=== PATIENT | female | born 1980 | race Caucasian/White ===

== ENCOUNTER 2020-05-11 18:04 | Emergency (ER) | payer OTHER ==
[~2020-05-11] VITALS: Ht 170.2 cm; Wt 118.2 kg
[2020-05-11 18:21] VITALS: Ht 170.2 cm; Wt 118.2 kg
[2020-05-11] MEDS ORDERED: PENICILLIN V P500 MG PO (18:59)
[2020-05-11 19:50] VITALS: BP 148/94
== END 2020-05-11 19:50 | disposition home or self-care (01) ==
LOC: D.ER 18:04
DX: K08.89 Other specified disorders of teeth and supporting structures (principal); K04.7 Periapical abscess without sinus

== ENCOUNTER 2020-05-23 19:24 | Emergency (ER) | payer OTHER ==
[~2020-05-23] VITALS: Ht 170.2 cm; Wt 113.6 kg
[~2020-05-23 19:24] MED LIST: PENICILLIN V P500 MG PO
[2020-05-23 20:15] VITALS: Ht 170.2 cm; Wt 113.6 kg
[2020-05-23 20:45] LABS: BASOPHILS 0.6 % (0-2); EOSINOPHILS 5.2 % (0-7); HEMATOCRIT 43.9 % (36.0-48.0); HEMOGLOBIN 14.1 g/dL (12-16); IMMATURE GRANULOCYTES 0.1 % (0-5); LYMPHOCYTES 33.2 % (15-50); MCH 27.5 pg (26.0-34.0); MCHC 32.1 g/dL (31.0-37.0); MCV 85.7 fL (80.0-100.0); MEAN PLATELET VOLUME 9.5 fL (7.4-10.4); MONOCYTES 11.8 % (2-11); NEUTROPHILS 49.1 % (40-80); PLATELET COUNT 453 10x3/uL (130-400); RBC 5.12 10x6/uL (4.00-5.40); RDW 15.6 % (11.5-14.5); WBC 9.9 10x3/uL (4.8-10.8)
[2020-05-23 20:56] LABS: ANION GAP 13.2 mmol/L (8-16); CALCIUM 9.5 mg/dL (8.5-10.1); CREATININE - SERUM 0.9 mg/dL (0.6-1.3); POTASSIUM - SERUM 4.2 mmol/L (3.5-5.1)
[2020-05-23 21:02] LABS: HCG SERUM NEGATIVE (NEGATIVE)
[2020-05-23 21:03] LABS: ALBUMIN 3.6 g/dL (3.4-5.0); BILIRUBIN - TOTAL 0.36 mg/dL (0.2-1.3); PROTEIN - SERUM 7.7 g/dL (6.4-8.2)
[2020-05-23] MEDS ORDERED: TYLENOL W/CODEI1 TAB PO (22:44)
[2020-05-23] MEDS ORDERED: CLEOCIN HCL300 MG PO (22:44)
[2020-05-23 23:29] VITALS: BP 128/92
== END 2020-05-23 23:34 | disposition home or self-care (01) ==
LOC: D.ER 19:24
PROVIDERS: Family Medicine
DX: K04.7 Periapical abscess without sinus (principal); R68.84 Jaw pain

== ENCOUNTER 2020-06-06 08:33 | Day surgery (SDC) | payer OTHER ==
[~2020-06-06] VITALS: Ht 167.6 cm; Wt 113.6 kg
--- NOTE | ~2020-06-06 | OP ---
PATIENT NAME: MARIA DE JESUS LIGHT MEDICAL RECORD: [id number] :84 LOCATION:D[facility] ADMISSION DATE: SURGEON: SANGITA DAMON MD DATE OF OPERATION: 06/06/2020 PREOPERATIVE DIAGNOSES: 1. Abdominal pain. 2. Pelvic mass. POSTOPERATIVE DIAGNOSES: 1. Abdominal pain. 2. Pelvic mass. 3. Ruptured hemorrhagic cyst. 4. Hemoperitoneum. PROCEDURE PERFORMED: 1. Diagnostic laparoscopy. 2. Evacuation of hemoperitoneum. 3. Fulguration of active bleeding vessel. SPECIMENS REMOVED: None applicable. SPECIMEN DISPOSITION: None applicable. ESTIMATED BLOOD LOSS: Minimal. FLUIDS: Fluids is going to be 600 cc of lactated Ringer's. URINE OUTPUT: 200 cc of clear urine. COMPLICATIONS: None. DRAINS: None. INDICATIONS: The patient is a 40-year-old female who presented to the Emergency Room with a tender abdomen. Workup included imaging, which showed a large pelvic mass and fluid, which were possibly represented blood. The patient is consented for diagnostic laparoscopy and any indicated procedure. DESCRIPTION OF PROCEDURE: After informed consent was assured, the patient was taken to the operating room where a Mcgowan catheter started and placed supine on the table. The patient was prepped and draped. Incision was made to accommodate a 5-mm trocar, which was inserted at the umbilicus and the pneumoperitoneum developed. The patient was placed in Trendelenburg position. The copious amount of blood and clot was identified in the pelvis and abdomen upon entry. A 10-mm port and a 5-mm port placed. Through this larger port, a suction supervisor welding equipment repairer was placed and the 10-mm suction supervisor welding equipment repairer was used to breakup clots and extract all blood and clot from the pelvis. The pelvis was copiously irrigated to help facilitate this. Upon clearing all the clot and debris, the right ovary was identified. There was a ruptured cyst here. The cyst measures less than 3 cm. There was active bleeding coming from the capsule. This was cauterized. The contents of the cyst were evacuated and the cyst cavity and ovary irrigated. Irrigant was again removed and visualization revealed adequate hemostasis. Pneumoperitoneum was released. Accessory trocars and primary trocar now removed. All sites were closed with subcuticular stitch. Dermabond OPERATIVE REPORT [id number] MARIA DE JESUS LIGHT applied. Sponge, lap, needle counts were correct times 2. TRANSINT:[id number] Voice Confirmation ID: [id number] DOCUMENT ID: [id number] SANGITA DAMON MD CC: [id number] DICTATION DATE: 06/17/20 145 [employer] OPERATOR: 06/17/20 183 [facility] [place] 06/06/20 [facility] [address] [id number]
[~2020-06-06 08:33] MED LIST changes: +CLEOCIN HCL300 MG PO; +TYLENOL W/CODEI1 TAB PO
[2020-06-06 08:38] VITALS: Ht 167.6 cm; Wt 113.6 kg
[2020-06-06] MEDS ORDERED: CLINDAMYCIN (08:56)
[2020-06-06 09:07] LABS: BASOPHILS 0.1 % (0-2); EOSINOPHILS 0.1 % (0-7); HEMATOCRIT 37.5 % (36.0-48.0); HEMOGLOBIN 12.2 g/dL (12-16); IMMATURE GRANULOCYTES 0.3 % (0-5); LYMPHOCYTES 7.1 % (15-50); MCH 27.7 pg (26.0-34.0); MCHC 32.5 g/dL (31.0-37.0); MCV 85.2 fL (80.0-100.0); MONOCYTES 3.2 % (2-11); NEUTROPHILS 89.2 % (40-80); PLATELET COUNT 415 10x3/uL (130-400); WBC 19.3 10x3/uL (4.8-10.8)
[2020-06-06 09:09] LABS: ANION GAP 11.8 mmol/L (8-16); CALCIUM 8.6 mg/dL (8.5-10.1); CARBON DIOXIDE 24.8 mmol/L (21.0-32.0); CREATININE - SERUM 0.9 mg/dL (0.6-1.3); POTASSIUM - SERUM 4.6 mmol/L (3.5-5.1)
[2020-06-06 09:18] LABS: ALBUMIN 3.4 g/dL (3.4-5.0); BILIRUBIN - TOTAL 0.62 mg/dL (0.2-1.3); PROTEIN - SERUM 7.1 g/dL (6.4-8.2); TROPONIN-I 0.02 ng/mL (0.000-0.060)
[2020-06-06 09:25] LABS: BILIRUBIN NEGATIVE (NEGATIVE); KETONE NEGATIVE (NEGATIVE); NITRITE NEGATIVE (NEGATIVE); UROBILINOGEN NORMAL (NORMAL)
[2020-06-06 09:45] LABS: HCG URINE NEGATIVE (NEGATIVE)
[2020-06-06 09:50] LABS: UDS - AMPHET NEGATIVE QUAL (NEGATIVE); UDS - BARB NEGATIVE QUAL (NEGATIVE); UDS - BENZO NEGATIVE QUAL (NEGATIVE); UDS - COCAINE NEGATIVE QUAL (NEGATIVE); UDS - OPIATE NEGATIVE QUAL (NEGATIVE); UDS - PCP NEGATIVE QUAL (NEGATIVE); UDS - THC POSITIVE QUAL (NEGATIVE)
[2020-06-06 13:40] VITALS: BP 137/96
--- NOTE | 2020-06-06 16:50 | NUR ---
[id number] DR DAMON AT BEDSIDE TALKING TO PT. RX GIVEN TO PT AND SORENSEN DISCONTINUED. PT DOESNT HAVE A RIDE HOME
--- NOTE | 2020-06-06 16:56 | NUR ---
HOUSESUPERVISOR CALLED BECAUSE PT DOENT HAVE A RIDE HOME. SPOKE TO MICK IGLESIAS AND SHE APPROVED IT.
--- NOTE | 2020-06-06 17:56 | NUR ---
1650 SORENSEN D/C TOLERATED WELL. ASSITED UP TO BATHROOM AND VOIDED X1 PAIN 7/10 PAIN MEDS GIVEN.
== END 2020-06-06 18:15 | disposition home or self-care (01) ==
LOC: D.OPS 08:33 → D.ER 08:33 → EDSTATUS 15:00 → D.OPS 18:15
PROVIDERS: Family Medicine; ATTEND Obstetrics & Gynecology
DX: R10.9 Unspecified abdominal pain (principal); R19.00 Intra-abdominal and pelvic swelling, mass and lump, unspecified site; N83.201 Unspecified ovarian cyst, right side; K66.1 Hemoperitoneum